=== PATIENT | female | born 1935 | race Caucasian/White ===

== ENCOUNTER 2019-10-18 12:11 | Inpatient (IN) | payer MEDICARE ==
[~2019-10-18] VITALS: Ht 167.6 cm; Wt 67.0 kg
[2019-10-18] MEDS ORDERED: MELO7.5T31 PO (13:02)
[2019-10-18] MEDS ORDERED: ATOR40TA PO (13:03)
[2019-10-18] MEDS ORDERED: METF500T17 PO (13:04)
[2019-10-18] MEDS ORDERED: ASPI-496 PO (13:04)
[2019-10-18] MEDS ORDERED: VENL75TA PO (13:05)
[2019-10-18] MEDS ORDERED: LAMO25TA5 PO ×2 (13:06→13:09)
[2019-10-18] MEDS ORDERED: HYDR200T72 PO (13:06)
[2019-10-18] MEDS ORDERED: DONE10TA7 PO (13:07)
[2019-10-18] MEDS ORDERED: MORPHINE SULFATE 4 MG/ML, 1ML ONE ×2 (13:15→14:33)
[2019-10-18] MEDS: MORPHINE SULFATE 4 MG/ML, 1ML IVPush PRN ×2 (13:18→14:38)
[2019-10-18] MEDS ORDERED: PLEASE ENTER ALLERGIES MC SCH (13:30)
[2019-10-18 13:39] LABS: INTERNATIONAL NORMALIZED RATIO 0.93 (0.93-1.1); PROTHROMBIN TIME 9.8 Seconds (9.6-11.5)
[2019-10-18 13:41] LABS: ALANINE AMINOTRANSFERASE 12 U/L (12-78); ALBUMIN 3.5 g/dL (3.4-5.0); ANION GAP 7 mmol/L (5-15); CALCIUM 9.5 mg/dL (8.5-10.1); CHLORIDE 108 mmol/L (98-107); CREATININE 0.86 mg/dL (0.55-1.02)
[2019-10-18 13:44] LABS: ALKALINE PHOSPHATASE 53 U/L (45-117); BILIRUBIN,TOTAL 0.3 mg/dL (0.2-1.0); TOTAL PROTEIN 7.4 g/dL (6.4-8.2)
[2019-10-18 14:05] LABS: MEAN CORPUSCULAR HEMOGLOBIN 24.2 pg (27.0-34.8); MEAN CORPUSCULAR VOLUME 78.3 fL (80-100); MEAN PLATELET VOLUME 8.1 fL (7.4-10.4); PLATELET COUNT 347 x10^3/uL (130-400); RED BLOOD COUNT 4.91 x10^6/uL (3.82-5.3)
[2019-10-18 14:14] LABS: MD YES
[2019-10-18 14:16] LABS: BANDS%(MANUAL) 1 % (0-7); BASOS% (MANUAL) 1 % (0-1); EOS% (MANUAL) 1 % (1-7); LYMPH#(MANUAL) 2.57 x10^3/uL (1-3.4); LYMPHS% (MANUAL) 26 % (22-44); MONOS% (MANUAL) 4 % (2-9); SEG#(MANUAL) 6.63 x10^3/uL (1.8-6.8); SEGS% (MANUAL) 67 % (42-75)
[2019-10-18 14:17] LABS: <PLATELET ESTIMATE> ADEQUATE; <PLT MORPHOLOGY> NORMAL PLT MORPH; ANISOCYTOSIS 1+; MICROCYTOSIS 1+
[2019-10-18] MEDS ORDERED: SODIUM CHLORIDE 0.9% 1,000 ML IV SCH (14:54)
[2019-10-18] MEDS ORDERED: morphine SULFATE 10 MG/ML, 1ML IVPush PRN (15:00)
[2019-10-18] MEDS ORDERED: ENALAPRILAT 1.25 MG/ML, 2ML IVPush PRN (15:00)
[2019-10-18] MEDS ORDERED: ONDANSETRON ODT 4 MG PO PRN (15:00)
[2019-10-18] MEDS ORDERED: ONDANSETRON 2MG/ML, 2ML IVPush PRN ×2 (15:00→18:00)
[2019-10-18] MEDS ORDERED: hydrALAzine 20 MG/ML, 1ML IVPush PRN (15:00)
[2019-10-18] MEDS ORDERED: BISACODYL 10 MG SUPP PR PRN (15:00)
[2019-10-18] MEDS ORDERED: POLYETHYLENE GLYCOL 17 GM PACKET PO PRN (15:00)
--- NOTE | 2019-10-18 16:27 | NUR ---
[facility] TELEPHONE HAND-OFF REPORT GIVEN TO KARISSA LEAHY IN [place].
[2019-10-18] MEDS ORDERED: FENTANYL PF 250 MCG/5ML ONE (16:41)
[2019-10-18] MEDS ORDERED: BUPIVACAINE/PF-EPI 0.5% 1:200K ONE (16:42)
[2019-10-18] MEDS ORDERED: LIDOCAINE-MPF 2% ,5ML ONE (17:27)
[2019-10-18] MEDS ORDERED: PROMETHAZINE 12.5 MG SUPP PR PRN (18:00)
[2019-10-18] MEDS ORDERED: ACETAMINOPHEN 325 MG TABLET PO PRN (18:00)
[2019-10-18] MEDS ORDERED: LABETALOL 5MG/ML, 20ML IV PRN (18:00)
[2019-10-18] MEDS ORDERED: OXYcodone 5 MG/5 ML ORAL.SOL UDC PO PRN (18:00)
[2019-10-18] MEDS ORDERED: hydrALAzine 20 MG/ML, 1ML IV PRN (18:00)
[2019-10-18] MEDS ORDERED: HYDROmorphone 1 MG/ML, 1ML INJ IVPush PRN (18:00)
[2019-10-18] MEDS ORDERED: PROPOFOL 10 MG/ML, 20ML ONE (19:16)
[2019-10-18] MEDS ORDERED: ONDANSETRON 2MG/ML, 2ML ONE (19:16)
[2019-10-18] MEDS ORDERED: GLYCOPYRROLATE 0.2MG/1ML, 5ML ONE (19:16)
[2019-10-18] MEDS ORDERED: NEOSTIGMINE 1 MG/ML, 10ML ONE (19:16)
[2019-10-18] MEDS ORDERED: SUCCINYLCHOLINE 20 MG/ML, 10ML ONE (19:16)
[2019-10-18] MEDS ORDERED: ROCURONIUM 10MG/ML,5ML ONE (19:16)
[2019-10-18] MEDS ORDERED: DEXAMETHASONE 4 MG/ML, 1ML ONE (19:16)
[2019-10-18] MEDS ORDERED: CEFAZOLIN 1,000 MG ONE (19:16)
[2019-10-18] MEDS ORDERED: OXYcodone 5 MG/5 ML ORAL.SOL UDC ONE (19:59)
[2019-10-18] MEDS ORDERED: FENTANYL PF 100 MCG/2ML ONE (19:59)
[2019-10-18] MEDS: FENTANYL PF 100 MCG/2ML IV PRN ×3 (20:03→20:23)
[2019-10-18] MEDS ORDERED: ACETAMINOPHEN 650 MG/20.3 ML UDC ONE (20:30)
[2019-10-18 21:05] VITALS: BP 145/74
[2019-10-18 21:12] VITALS: BP 147/72
[2019-10-18] MEDS: LAMOTRIGINE 25 MG TABLET PO SCH (21:45)
[2019-10-18] MEDS: HYDROXYCHLOROQUINE 200 MG TABLET PO SCH (21:45)
[2019-10-19 00:14] VITALS: BP 117/68
[2019-10-19] MEDS: ACETAMINOPHEN 325 MG TABLET PO PRN ×4 (00:19→13:06)
[2019-10-19] MEDS: OXYcodone IR 5MG TABLET PO PRN ×6 (00:19→18:00)
[2019-10-19 03:45] VITALS: BP 142/76
[2019-10-19 06:45] LABS: ANION GAP 7 mmol/L (5-15); CALCIUM 8.2 mg/dL (8.5-10.1); CHLORIDE 111 mmol/L (98-107)
[2019-10-19 07:18] VITALS: BP 150/71
[2019-10-19 08:05] LABS: BASOPHILS # (AUTO) 0.02 x10^3/uL (0-0.1); BASOPHILS % (AUTO) 0 % (0-1); EOSINOPHILS # (AUTO) 0.01 x10^3/uL (0-0.4); EOSINOPHILS % (AUTO) 0 % (1-7); LYMPHOCYTES # (AUTO) 1.26 x10^3/uL (1-3.4); LYMPHOCYTES % (AUTO) 14 % (22-44); MD NO; MEAN CORPUSCULAR HEMOGLOBIN 24.2 pg (27.0-34.8); MEAN CORPUSCULAR HGB CONC 30.3 g/dL (32.4-35.8); MEAN CORPUSCULAR VOLUME 79.8 fL (80-100); MEAN PLATELET VOLUME 7.5 fL (7.4-10.4); MONOCYTES # (AUTO) 0.94 x10^3/uL (0.2-0.8); MONOCYTES % (AUTO) 11 % (2-9); NEUTROPHILS # (AUTO) 6.73 x10^3/uL (1.8-6.8); NEUTROPHILS % (AUTO) 75 % (42-75); PLATELET COUNT 234 x10^3/uL (130-400); RED BLOOD COUNT 3.65 x10^6/uL (3.82-5.3); RED CELL DISTRIBUTION WIDTH 18.6 % (9.6-15.2)
[2019-10-19] MEDS: LAMOTRIGINE 25 MG TABLET PO SCH ×2 (08:19→20:41)
[2019-10-19] MEDS: DONEPEZIL 10 MG TABLET PO SCH (08:20)
[2019-10-19] MEDS: SENNA/DOCUSATE TABLET PO SCH (08:20)
[2019-10-19] MEDS: VENLAFAXINE 75MG TABLET PO SCH (08:20)
[2019-10-19] MEDS: HYDROXYCHLOROQUINE 200 MG TABLET PO SCH ×2 (08:21→20:41)
[2019-10-19] MEDS: IRON SUCROSE COMPLEX 100MG/5ML IV SCH (08:21)
[2019-10-19] MEDS: ENOXAPARIN 40 MG/0.4 ML SQ SCH (08:21)
[2019-10-19 11:52] VITALS: BP 150/71
[2019-10-19 12:34] VITALS: BP 130/68
[2019-10-19 18:54] VITALS: BP 152/74
[2019-10-20 00:22] VITALS: BP 158/68
[2019-10-20] MEDS: OXYcodone IR 5MG TABLET PO PRN ×5 (00:31→21:57)
[2019-10-20 05:31] LABS: BASOPHILS % (AUTO) 0 % (0-1); EOSINOPHILS # (AUTO) 0.27 x10^3/uL (0-0.4); EOSINOPHILS % (AUTO) 3 % (1-7); LYMPHOCYTES # (AUTO) 1.69 x10^3/uL (1-3.4); LYMPHOCYTES % (AUTO) 19 % (22-44); MD NO; MEAN CORPUSCULAR HEMOGLOBIN 24.5 pg (27.0-34.8); MEAN CORPUSCULAR HGB CONC 30.9 g/dL (32.4-35.8); MEAN CORPUSCULAR VOLUME 79.2 fL (80-100); MEAN PLATELET VOLUME 8.1 fL (7.4-10.4); MONOCYTES # (AUTO) 0.97 x10^3/uL (0.2-0.8); MONOCYTES % (AUTO) 11 % (2-9); NEUTROPHILS # (AUTO) 6.09 x10^3/uL (1.8-6.8); NEUTROPHILS % (AUTO) 68 % (42-75); PLATELET COUNT 217 x10^3/uL (130-400); RED CELL DISTRIBUTION WIDTH 18.6 % (9.6-15.2)
[2019-10-20 05:44] LABS: ANION GAP 4 mmol/L (5-15); CALCIUM 7.8 mg/dL (8.5-10.1); CHLORIDE 109 mmol/L (98-107)
[2019-10-20 07:54] VITALS: BP 154/75
[2019-10-20] MEDS: ENOXAPARIN 40 MG/0.4 ML SQ SCH (08:59)
[2019-10-20] MEDS: DONEPEZIL 10 MG TABLET PO SCH (08:59)
[2019-10-20] MEDS: VENLAFAXINE 75MG TABLET PO SCH (08:59)
[2019-10-20] MEDS: IRON SUCROSE COMPLEX 100MG/5ML IV SCH (08:59)
[2019-10-20] MEDS: LAMOTRIGINE 25 MG TABLET PO SCH ×2 (09:00→21:36)
[2019-10-20] MEDS: SENNA/DOCUSATE TABLET PO SCH (09:00)
[2019-10-20] MEDS: HYDROXYCHLOROQUINE 200 MG TABLET PO SCH ×2 (09:00→21:36)
[2019-10-20] MEDS: ACETAMINOPHEN 325 MG TABLET PO PRN ×3 (10:41→21:57)
[2019-10-20 13:35] VITALS: BP 173/75
[2019-10-20 15:06] VITALS: BP 150/72
[2019-10-20 19:00] VITALS: BP 161/70
[2019-10-21 00:55] VITALS: BP 155/70
[2019-10-21] MEDS: ACETAMINOPHEN 325 MG TABLET PO PRN ×3 (05:47→20:12)
[2019-10-21] MEDS: OXYcodone IR 5MG TABLET PO PRN ×3 (05:47→20:13)
[2019-10-21 07:45] VITALS: BP 157/73
[2019-10-21] MEDS: IRON SUCROSE COMPLEX 100MG/5ML IV SCH (08:59)
[2019-10-21] MEDS: ENOXAPARIN 40 MG/0.4 ML SQ SCH (08:59)
[2019-10-21] MEDS: LAMOTRIGINE 25 MG TABLET PO SCH ×2 (09:00→20:12)
[2019-10-21] MEDS: DONEPEZIL 10 MG TABLET PO SCH (09:00)
[2019-10-21] MEDS: VENLAFAXINE 75MG TABLET PO SCH (09:00)
[2019-10-21] MEDS: SENNA/DOCUSATE TABLET PO SCH (09:00)
[2019-10-21] MEDS: HYDROXYCHLOROQUINE 200 MG TABLET PO SCH ×2 (09:00→20:13)
[2019-10-21 14:07] VITALS: BP 146/70
[2019-10-21] MEDS: SODIUM CHLORIDE 0.9% 1,000 ML IV SCH (18:15)
[2019-10-21 19:28] VITALS: BP 136/68
[2019-10-22 02:28] VITALS: BP 141/65
[2019-10-22] MEDS: OXYcodone IR 5MG TABLET PO PRN ×3 (02:35→11:57)
[2019-10-22] MEDS: ACETAMINOPHEN 325 MG TABLET PO PRN ×3 (02:36→11:57)
[2019-10-22] MEDS: SODIUM CHLORIDE 0.9% 1,000 ML IV SCH (06:08)
[2019-10-22 07:20] VITALS: BP 135/81
[2019-10-22] MEDS: IRON SUCROSE COMPLEX 100MG/5ML IV SCH ×2 (09:00→09:05)
[2019-10-22] MEDS: VENLAFAXINE 75MG TABLET PO SCH (09:04)
[2019-10-22] MEDS: SENNA/DOCUSATE TABLET PO SCH (09:05)
[2019-10-22] MEDS: DONEPEZIL 10 MG TABLET PO SCH (09:05)
[2019-10-22] MEDS: LAMOTRIGINE 25 MG TABLET PO SCH (09:05)
[2019-10-22] MEDS: HYDROXYCHLOROQUINE 200 MG TABLET PO SCH (09:05)
[2019-10-22] MEDS: ENOXAPARIN 40 MG/0.4 ML SQ SCH (09:05)
[2019-10-22] MEDS ORDERED: ASPI-515 PO (09:43)
[2019-10-22] MEDS ORDERED: FERR324T5 PO (09:43)
[2019-10-22 13:18] VITALS: BP 129/68
== END 2019-10-22 18:12 | DRG 494 ==
LOC: ED 13:29 → EDIP 13:59 → 4NE 20:49
PROVIDERS: ADMIT Family Medicine; ATTEND Family Medicine
PROC: 8E0Y3EZ Fluorescence Guided Procedure of Lower Extremity, Percutaneous Approach (ICD-10-PCS; 2019-10-18)
PROC: 0QSG04Z Reposition Right Tibia with Internal Fixation Device, Open Approach (ICD-10-PCS; 2019-10-18)
PROC: 0QSG36Z Reposition Right Tibia with Intramedullary Internal Fixation Device, Percutaneous Approach (ICD-10-PCS; principal; 2019-10-18 18:15)
DX: S82.241A Displaced spiral fracture of shaft of right tibia, initial encounter for closed fracture (principal); S82.831A Other fracture of upper and lower end of right fibula, initial encounter for closed fracture; D50.9 Iron deficiency anemia, unspecified; D53.9 Nutritional anemia, unspecified; F03.90 Unspecified dementia, unspecified severity, without behavioral disturbance, psychotic disturbance, mood disturbance, and anxiety; S82.301A Unspecified fracture of lower end of right tibia, initial encounter for closed fracture; G40.909 Epilepsy, unspecified, not intractable, without status epilepticus; I10 Essential (primary) hypertension; M06.9 Rheumatoid arthritis, unspecified; Z66 Do not resuscitate; G89.29 Other chronic pain; M25.50 Pain in unspecified joint; F32.9 Major depressive disorder, single episode, unspecified; W18.39XA Other fall on same level, initial encounter; Z90.49 Acquired absence of other specified parts of digestive tract; Z86.73 Personal history of transient ischemic attack (TIA), and cerebral infarction without residual deficits; Z90.710 Acquired absence of both cervix and uterus; Y93.89 Activity, other specified; Y92.89 Other specified places as the place of occurrence of the external cause; Y99.8 Other external cause status
CPT/HCPCS: 36415; 71045; 76000; 80048; 80053; 82728; 83540; 83550; 84443; 84466; 85014; 85018; 85025; 85610; 86850; 86900; 87635; 93005; C1713; G0378; J0690; J1100; J1650; J1756; J2405; J2704; J2710; J3010; J0330; J2270; J7030